=== PATIENT | male | born 1940 | race Caucasian/White ===

== ENCOUNTER 2025-05-19 14:57 | Outpatient (CLI) | payer MEDICARE, BC, SELFPAY ==
--- NOTE | 2025-05-19 15:30 | MR_ITS ---
[address] [address] Phone:?[phone] Fax:?[phone] Referring Physician Information: Sunny Patel [address] [facility] [address] Phone:?[phone] Fax:?[phone] Patient:Rene Arthur D.O.B:?1940 Sex:?Male Phone:?[phone] [facility] MRN:?[id number] Exam Date:?05/19/2025 EXAM: MRI of the RIGHT HIP without contrast CLINICAL: Reported history of trochanteric bursitis. Evaluate acetabulum and for osteoarthritis. COMPARISONS: X-rays including 05/11/2025. TECHNICAL: Multiplanar multisequence MRI of the right hip was obtained. Coronal large [id number] sequences of the pelvis/bilateral hips were also obtained. SEDATION: None. CONTRAST: None. FINDINGS: Hip joint: Physiologic volume of joint fluid. No convincing loose bodies. Small segment of high-grade/full-thickness chondral loss involves the peripheral superior right hip joint on coronal series 3 image 16. Labrum: There is tearing throughout the anterior labrum extending into the superior labrum. No perilabral cyst formation identified. Proximal femur: No marrow edema, fracture or osteonecrosis. No concerning osseous lesion identified. Acetabulum: No significant subchondral marrow edema, cystic change or fracture. There is degenerative peripheral marginal spurring involving the acetabulum. Ligamentum teres: Relatively attenuated. Pelvis osseous structures: No suspicious marrow signal alteration or fracture line. Sacroiliac joints are maintained without marrow signal changes to suggest sacroiliitis or significant arthrosis. No evident arthrosis or changes of osteitis pubis at the symphysis pubis. Myotendinous structures: Gluteus abductors: No convincing insertional tendinopathy or tear of gluteus minimus or medius. Adductors: No demonstrable tendinopathy or strain/tear. Hamstrings: There is mild tendinosis of the proximal hamstring tendons bilaterally at the ischial tuberosity attachments. No evidence of hamstring tendon tear. Flexors: Intact iliopsoas and rectus femoris, without strain/tear. External rotators: Intact. The ischiofemoral and quadratus femoris spaces are within normal limits. Gluteal aponeurotic fascia and IT band: Unremarkable. Bursae: No demonstrable trochanteric or iliopsoas bursitis. Intrapelvic structures: Small urinary bladder diverticuli are noted. Partially visualized renal cysts are present bilaterally. Colonic diverticulosis is noted. Degenerative changes are seen to involve the imaged lower lumbar spine. IMPRESSION: 1. Tearing throughout the anterior labrum extending into the superior labrum. 2. Small segment of high-grade/full-thickness chondral loss involving the peripheral superior right hip joint. Degenerative peripheral marginal spurring also involves the acetabulum. 3. Mild tendinosis of the proximal hamstring tendons bilaterally at the ischial tuberosity attachments. 4. No evidence of fracture or avascular necrosis. No evidence of bursitis. 5. Partially visualized bilateral renal cysts. Urinary bladder diverticuli also noted. ESTEBANZ Electronically signed on 05/23/2025 12:06:00 PM by Colton Baldwin D.O.
--- NOTE | 2025-05-19 15:30 | MR_ITS ---
[address] [address] Phone:?[phone] Fax:?[phone] Referring Physician Information: Sunny Patel [address] [facility] [address] Phone:?[phone] Fax:?[phone] Patient:Rene Arthur D.O.B:?1940 Sex:?Male Phone:?[phone] [facility] MRN:?[id number] Exam Date:?05/19/2025 EXAM: MRI of the LEFT HIP without contrast CLINICAL: Reported history of trochanteric bursitis. Evaluate acetabulum and for osteoarthritis. COMPARISONS: X-rays including 05/11/2025. TECHNICAL: Multiplanar multisequence MRI of the left hip was obtained. Coronal large [id number] sequences of the pelvis/bilateral hips were also obtained. SEDATION: None. CONTRAST: None. FINDINGS: Hip joint: Physiologic volume of joint fluid. No convincing loose bodies. No chondral defects identified. Labrum: Ill-defined degenerative changes are seen to involve the anterior labrum as well as involving the superior labrum. No perilabral cyst formation identified. Proximal femur: No marrow edema, fracture or osteonecrosis. No evidence of concerning osseous lesion. Acetabulum: No significant subchondral marrow edema, cystic change or fracture. There is mild degenerative peripheral marginal spurring involving the acetabulum. Ligamentum teres: Relatively attenuated. Myotendinous structures: Gluteus abductors: No convincing insertional tendinopathy or tear of gluteus minimus or medius. Adductors: No demonstrable tendinopathy or strain/tear. Hamstrings: Mild tendinosis involving the proximal hamstring tendons bilaterally at the ischial tuberosity attachments. No significant tendon tear. Flexors: Intact iliopsoas and rectus femoris, without strain/tear. External rotators: Intact. The ischiofemoral and quadratus femoris spaces are within normal limits. Gluteal aponeurotic fascia and IT band: Unremarkable. Bursae: No demonstrable trochanteric or iliopsoas bursitis. IMPRESSION: 1. Ill-defined degenerative changes involving the anterior labrum as well as involving the superior labrum. 2. Mild degenerative peripheral marginal spurring involving the left acetabulum. 3. Mild tendinosis involving the proximal hamstring tendons at the ischial tuberosity attachment bilaterally. 4. No evidence of fracture or avascular necrosis. JCZ Electronically signed on 05/23/2025 12:10:00 PM by Colton Baldwin D.O.
== END 2025-05-19 14:58 | disposition home or self-care (01) ==
LOC: MRI 15:01
PROVIDERS: PCP Family Medicine; Visit Provider Physician Assistant
DX: M16.12 Unilateral primary osteoarthritis, left hip (principal); M24.252 Disorder of ligament, left hip; M76.892 Other specified enthesopathies of left lower limb, excluding foot; M76.891 Other specified enthesopathies of right lower limb, excluding foot
CPT/HCPCS: 73721